=== PATIENT | male | born 1950 | race Caucasian/White ===

== ENCOUNTER → 2025-03-04 | Outpatient (CLI) | payer OTHER ==
[~2025-03-04] MED LIST: ASPI325EC PO; Aspirin EC325 MG PO; B Complete1 EACH PO; CHOL10002 PO; HYDCHL12.5 PO; OXYACE5T PO; Percocet 5-3251 EACH PO; QVAR7.3 G1 INH; Stool Softener100 MG PO; [UNRECOGNIZED DRUG - OTHER] PO
== END | disposition home or self-care (01) ==
LOC: LAB SHORT 18:12 → LAB 18:12
DX: M25.431 Effusion, right wrist (principal)
CPT/HCPCS: 84550; 85651